=== PATIENT | male | born 1965 | race Two or more races ===

== ENCOUNTER 2017-07-22 13:35 | Day surgery (SDC) | payer OTHER ==
[2017-07-22] MEDS ORDERED: FENTAnyl 50 MCG/ML VIAL (17:44)
[2017-07-22] MEDS ORDERED: MIDAZOLAM 1 MG/ML 2 ML INJ ×3 (17:45)
== END 2017-07-22 18:10 | disposition home or self-care (01) ==
LOC: GIL 13:35
DX: Z12.11 Encounter for screening for malignant neoplasm of colon (principal); D12.6 Benign neoplasm of colon, unspecified; K64.4 Residual hemorrhoidal skin tags
CPT/HCPCS: 45378; 88305